=== PATIENT | male | born 1955 | race African-American/Black ===

== ENCOUNTER 2016-10-04 08:47 | Inpatient (IN) | payer OTHER ==
[2016-10-04 09:11] VITALS: BMI 34.5
--- NOTE | 2016-10-04 09:13 | HP ---
CIWA Score - CIWA Score Nausea/Vomitin-Mild Nausea/No Vomiting Muscle Tremors: 4-Moderate,w/Arms Extend Anxiety: 4-Mod. Anxious/Guarded Agitation: 1-Slight > Activity Paroxysmal Sweats: 1-Minimal Palms Moist Orientation: 0-Oriented Tacttile Disturbances: 1-Very Mild Itch/Numbness Auditory Disturbances: 1-Very Mild Visual Disturbances: 1-Very Mild Sensitivity Headache: 2-Mild CIWA-Ar Total Score: 16 Admission ROS [facility] - HPI Chief Complaint: I need help to stop drinking, I'm drinking too much, I'm falling, my landlord wants me to come and so do I. Allergies/Adverse Reactions: Allergies Allergy/AdvReac Type Severity Reaction Status Date / Time No Known Allergies Allergy Verified 10/04/16 09:09 History of Present Illness: 61 yo gentleman here for first time for detox - last in detox three years ago . Denies seizures or black outs. History HIV+. Exam Limitations: Clinical Condition - Ebola screening Have you traveled outside of the country in the last 21 days: No Have you had contact with anyone from an Ebola affected area: No Do you have a fever: No - Review of Systems Constitutional: Loss of Appetite, Changes in sleep EENT: reports: Blurred Vision, Hearing Loss Respiratory: reports: No Symptoms reported Cardiac: reports: No Symptoms Reported GI: reports: Poor Appetite, Indigestion, Abdominal cramping : reports: Frequency Integumentary: reports: Other (vitiligo) Neuro: reports: Headache, Tremors Endocrine: reports: No Symptoms Reported Hematology: reports: No Symptoms Reported Psychiatric: reports: Judgement Intact, Mood/Affect Appropiate, Orientated x3, Anxious Other Systems: Reviewed and Negative Patient History - Patient Medical History Hx Anemia: No Hx Asthma: No Hx Chronic Obstructive Pulmonary Disease (COPD): No Hx Cancer: No Hx Cardiac Disorders: No Hx Congestive Heart Failure: No Hx Hypertension: Yes (on meds) Hx Hypercholesterolemia: Yes (on meds) Hx Pacemaker: No HX Cerebrovascular Accident: No Hx Seizures: No Hx Diabetes: No Hx Gastrointestinal Disorders: No Hx Liver Disease: No Hx Genitourinary Disorders: No Hx Sexually Transmitted Disorders: Yes (rectal/anal wart) Hx Renal Disease (ESRD): No Hx Thyroid Disease: No Hx Human Immunodeficiency Virus (HIV): Yes (since 1988; T cells in 600s, vl <20) Hx Hepatitis C: Yes (treated x 3 months) Hx Depression: Yes (hx manic depression) Hx Suicide Attempt: Yes (about 10 years ago) Hx Bipolar Disorder: No Hx Schizophrenia: No Other Medical History: vitiligo; reduced hearing bilaterally - Patient Surgical History Past Surgical History: Yes Hx Genitourinary Surgery: No (anal wart removal ) - PPD History Previous Implant?: Yes Documented Results: Negative w/o proof Implanted On Prior R Admission?: No PPD to be Administered?: Yes - Reproductive History Patient is a Female of Child Bearing Age (11 -55 yrs old): No (male) - Smoking Cessation Smoking history: Current every day smoker Have you smoked in the past 12 months: Yes Aproximately how many cigarettes per day: 10 Hx Chewing Tobacco Use: No Initiated information on smoking cessation: Yes 'Breaking Loose' booklet given: 10/04/16 (give on floor) - Substance & Tx. History Hx Alcohol Use: Yes Hx Substance Use: Yes Substance Use Type: Alcohol, Cocaine Hx Substance Use Treatment: Yes (detox) - Substances Abused Alcohol Route: Oral Frequency: Daily Amount used: 1.5 liters liquor; two six packs beer Age of first use: 32 Date of Last Use: 10/03/16 Crack Route: Smoking Frequency: Daily Amount used: $100 Age of first use: 32 Date of Last Use: 10/03/16 Family Disease History - Family Disease History Family Disease History: Diabetes: Father (hx alcohol, ), Mother ( 96), Heart Disease: Mother, Other: Father, Sister ( AIDS) Admission Physical Exam S - Vital Signs Vital Signs: Vital Signs Period Temp Pulse Resp BP Sys/[place]ands Pulse Ox Last 24 Hr 98.2 F 97 20 107/71 - Physical General Appearance: Yes: Nourished, Appropriately Dressed, Mild Distress, Anxious HEENTM: Yes: Normocephalic, Normal Voice, Pharynx Normal, Other (reduced hearing ) Respiratory: Yes: Normal Breath Sounds, No Respiratory Distress Neck: Yes: No masses,lesions,Nodules, Supple Breast: Yes: Breast Exam Deferred Cardiology: Yes: Regular Rhythm, Regular Rate Abdominal: Yes: Soft Genitourinary: Yes: Frequency Back: Yes: Normal Inspection Musculoskeletal: Yes: full range of Motion, Gait Steady Extremities: Yes: Normal Range of Motion Neurological: Yes: Alert, Motor Strength 5/5, Normal Mood/Affect, Normal Response Integumentary: Yes: Dry, Other (vitiligo) Lymphatic: Yes: Within Normal Limits - Diagnostic (1) Alcohol dependence with uncomplicated withdrawal Current Visit: Yes Status: Chronic (2) Cocaine abuse Current Visit: Yes Status: Chronic (3) HIV (human immunodeficiency virus infection) Current Visit: Yes Status: Chronic (4) Hearing loss Current Visit: Yes Status: Chronic Qualifiers: Hearing loss type: unspecified Laterality: bilateral Qualified Code(s): H91.93 - Unspecified hearing loss, bilateral (5) Nicotine dependence Current Visit: Yes Status: Chronic Qualifiers: Nicotine product type: cigarettes Substance use status: uncomplicated Qualified Code(s): F17.210 - Nicotine dependence, cigarettes, uncomplicated (6) Vitiligo Current Visit: Yes Status: Chronic Cleared for Admission S - Detox or Rehab S Level of Care: Medically Managed Detox Regimen/Protocol: Librium
[2016-10-04] MEDS ORDERED: LOPERAMIDE HCL 2 MG CAPSULE PO PRN (09:49)
[2016-10-04] MEDS ORDERED: MAGNESIUM CITRATE 300 ML BOTTLE PO PRN (09:49)
[2016-10-04] MEDS ORDERED: chlordiazePOXIDE HCL 25 MG CAPSULE PO PRN (09:49)
[2016-10-04] MEDS ORDERED: MENTHOL/PHENOL 1 EACH UD MM PRN (09:49)
[2016-10-04] MEDS ORDERED: MAGNESIUM HYDROX 2400MG/30ML ORAL SUSPENSION 30 ML CUP PO PRN (09:49)
[2016-10-04] MEDS ORDERED: diphenhydrAMINE HCL 50 MG CAPSULE PO PRN (09:49)
[2016-10-04] MEDS ORDERED: MAG HYDROX/AL HYDROX/SIMETH 30 ML UNIT-DOSE CUP PO PRN (09:49)
[2016-10-04] MEDS ORDERED: P-EPHED 60MG/TRIPROLIDI 2.5MG TABLET PO PRN (09:49)
[2016-10-04] MEDS ORDERED: hydrOXYzine PAMOATE 50 MG CAPSULE (FP) PO PRN (09:49)
[2016-10-04] MEDS ORDERED: NICOTINE POLACRILEX 2 MG GUM BC PRN (09:49)
[2016-10-04] MEDS ORDERED: ACETAMINOPHEN 325 MG TABLET (FP) PO PRN (09:49)
[2016-10-04] MEDS ORDERED: chlordiazePOXIDE HCL 25 MG CAPSULE PO ONE (11:00)
[2016-10-04] MEDS: RALTEGRAVIR POTASSIUM 400 MG TAB PO SCH ×2 (13:24→22:25)
[2016-10-04] MEDS: NICOTINE 21 MG/24 HOURS TOPICAL PATCH TD SCH (13:24)
[2016-10-04] MEDS: ASPIRIN 81 MG CHEWABLE TABLETS PO SCH (13:24)
[2016-10-04] MEDS: RITONAVIR 100 MG TABLET PO SCH (13:26)
[2016-10-04] MEDS: EMTRICITABINE 200MG/TENOFOVIR 300MG PO SCH (13:26)
[2016-10-04] MEDS: PRENATAL VITAMINS W/ FOLIC ACID TABLET (FP) PO SCH (13:26)
[2016-10-04] MEDS: LISINOPRIL 10 MG TABLET (FP) PO SCH (13:26)
[2016-10-04] MEDS: chlordiazePOXIDE HCL 25 MG CAPSULE PO SCH ×2 (17:26→23:24)
[2016-10-04 18:38] LABS: URINE APPEARANCE CLEAR; URINE BILIRUBIN NEGATIVE (NEGATIVE); URINE COLOR YELLOW; URINE GLUCOSE (UA) NEGATIVE (NEGATIVE); URINE KETONE NEGATIVE (NEGATIVE); URINE LEUK ESTERASE NEGATIVE (NEGATIVE); URINE NITRITE NEGATIVE (NEGATIVE); URINE UROBILINOGEN NEGATIVE E.U./dl (0.2-1.0)
[2016-10-04 18:40] LABS: URINE BLOOD 1+ (NEGATIVE); URINE PROTEIN 1+ (NEGATIVE)
[2016-10-04 18:59] LABS: URINE MUCUS RARE; URINE RBC 4 /hpf (0-3)
[2016-10-04] MEDS: THIAMINE HCL 100 MG TABLET (FP) PO SCH (22:23)
[2016-10-04] MEDS: ATORVASTATIN CA 10 MG TABLET (FP) PO SCH (22:25)
[2016-10-04] MEDS: guaiFENesin/D-METHORPHAN HB 10 ML UNIT-DOSE CUPS PO PRN (22:27)
[2016-10-05] MEDS: chlordiazePOXIDE HCL 25 MG CAPSULE PO SCH ×4 (05:40→22:15)
--- NOTE | 2016-10-05 09:12 | PN ---
S CIWA - CIWA Score Nausea/Vomitin Muscle Tremors: 3 Anxiety: 3 Agitation: 4-Moderately Restless Paroxysmal Sweats: No Perspiration Orientation: 0-Oriented Tacttile Disturbances: 0-None Auditory Disturbances: 0-None Visual Disturbances: 0-None Headache: 3-Moderate CIWA-Ar Total Score: 16 [facility] Progress Note (SOAP) Subjective: Fatigue, Anxiety, Interrupted sleep, Tremors Objective: 10/05/16 09:17 Vital Signs Temperature 96.8 F L 10/05/16 06:24 Pulse Rate 90 10/05/16 06:24 Respiratory Rate 18 10/05/16 06:24 Blood Pressure 130/81 10/05/16 06:24 O2 Sat by Pulse Oximetry (%) Laboratory Last Values Urine Color Yellow 10/04/16 17:00 Urine Appearance Clear 10/04/16 17:00 Urine pH 5.0 (5.0-8.0) 10/04/16 17:00 Ur Specific [place] 1.024 (1.001-1.035) 10/04/16 17:00 Urine Protein 1+ (NEGATIVE) H 10/04/16 17:00 Urine Glucose (UA) Negative (NEGATIVE) 10/04/16 17:00 Urine Ketones Negative (NEGATIVE) 10/04/16 17:00 Urine Blood 1+ (NEGATIVE) H 10/04/16 17:00 Urine Nitrite Negative (NEGATIVE) 10/04/16 17:00 Urine Bilirubin Negative (NEGATIVE) 10/04/16 17:00 Urine Urobilinogen Negative E.U./dl (0.2-1.0) 10/04/16 17:00 Ur Leukocyte Esterase Negative (NEGATIVE) 10/04/16 17:00 Urine RBC 4 /hpf (0-3) 10/04/16 17:00 Urine WBC None /hpf (3-5) 10/04/16 17:00 Ur Epithelial Cells Rare /hpf (FEW) 10/04/16 17:00 Urine Mucus Rare 10/04/16 17:00 Vitals and UA noted Assessment: Withdrawal Symptoms Plan: Continue Detox
[2016-10-05 10:01] LABS: MCH 28.4 pg (25.7-33.7); MCHC 32.8 g/dl (32.0-35.9); MEAN CELL VOLUME 86.8 fl (80-96); MEAN PLT VOLUME 8.8 fl (7.5-11.1); PLATELET COUNT 158 K/MM3 (134-434); RDW 14.5 % (11.9-15.9); WHITE BLOOD COUNT 7.3 K/mm3 (4.0-10.0)
[2016-10-05] MEDS: ASPIRIN 81 MG CHEWABLE TABLETS PO SCH (10:06)
[2016-10-05] MEDS: PRENATAL VITAMINS W/ FOLIC ACID TABLET (FP) PO SCH (10:06)
[2016-10-05] MEDS: LISINOPRIL 10 MG TABLET (FP) PO SCH (10:06)
[2016-10-05] MEDS: NICOTINE 21 MG/24 HOURS TOPICAL PATCH TD SCH (10:06)
[2016-10-05] MEDS: RALTEGRAVIR POTASSIUM 400 MG TAB PO SCH ×2 (10:06→22:15)
[2016-10-05] MEDS: EMTRICITABINE 200MG/TENOFOVIR 300MG PO SCH (10:07)
[2016-10-05] MEDS: RITONAVIR 100 MG TABLET PO SCH (10:07)
[2016-10-05 10:18] LABS: ALBUMIN 3.5 g/dl (3.4-5.0); ALK PHOS 94 U/L (45-117); ANION GAP 8 (8-16); BILIRUBIN,TOTAL 0.5 mg/dL (0.2-1.0); CALCIUM 8.6 mg/dL (8.5-10.1); CO2 25 mmol/L (21-32); GLUCOSE,RANDOM 105 mg/dL (74-106); SGOT/AST 49 U/L (15-37); SGPT/ALT 72 U/L (12-78); TOT PROT 7.6 g/dl (6.4-8.2)
--- NOTE | 2016-10-05 11:38 | EKG ---
Test Reason : Blood Pressure : / mmHG Vent. Rate : 090 BPM Atrial Rate : 090 BPM P-R Int : 130 ms QRS Dur : 094 ms QT Int : 354 ms P-R-T Axes : 048 -27 025 degrees QTc Int : 433 ms NORMAL SINUS RHYTHM MINIMAL VOLTAGE CRITERIA FOR LVH, MAY BE NORMAL VARIANT NONSPECIFIC T WAVE ABNORMALITY ABNORMAL ECG NO PREVIOUS ECGS AVAILABLE Confirmed by AMAURI TURNER MD ([id number]) on 10/05/2016 11:37:44 AM Referred By: Confirmed By:AMAURI TURNER MD
[2016-10-05] MEDS: guaiFENesin/D-METHORPHAN HB 10 ML UNIT-DOSE CUPS PO PRN ×2 (12:45→22:17)
[2016-10-05 20:45] LABS: SICKLE CELL SCREEN NEGATIVE (NEGATIVE)
[2016-10-05] MEDS: THIAMINE HCL 100 MG TABLET (FP) PO SCH (22:15)
[2016-10-05] MEDS: ATORVASTATIN CA 10 MG TABLET (FP) PO SCH (22:15)
[2016-10-06] MEDS: chlordiazePOXIDE HCL 25 MG CAPSULE PO SCH ×2 (05:58→10:36)
[2016-10-06] MEDS: guaiFENesin/D-METHORPHAN HB 10 ML UNIT-DOSE CUPS PO PRN ×2 (05:59→17:23)
[2016-10-06] MEDS: RITONAVIR 100 MG TABLET PO SCH (10:07)
[2016-10-06] MEDS: EMTRICITABINE 200MG/TENOFOVIR 300MG PO SCH (10:07)
[2016-10-06] MEDS: PRENATAL VITAMINS W/ FOLIC ACID TABLET (FP) PO SCH (10:07)
[2016-10-06] MEDS: NICOTINE 21 MG/24 HOURS TOPICAL PATCH TD SCH (10:07)
[2016-10-06] MEDS: ASPIRIN 81 MG CHEWABLE TABLETS PO SCH (10:07)
[2016-10-06] MEDS: RALTEGRAVIR POTASSIUM 400 MG TAB PO SCH ×2 (10:07→22:09)
[2016-10-06] MEDS: LISINOPRIL 10 MG TABLET (FP) PO SCH (10:07)
--- NOTE | 2016-10-06 11:16 | PN ---
S CIWA - CIWA Score Nausea/Vomitin-No Nausea/No Vomiting Muscle Tremors: 3 Anxiety: 4-Mod. Anxious/Guarded Agitation: 3 Paroxysmal Sweats: 3 Orientation: 0-Oriented Tacttile Disturbances: 0-None Auditory Disturbances: 0-None Visual Disturbances: 0-None Headache: 0-None Present CIWA-Ar Total Score: 13 S Progress Note (SOAP) Subjective: Anxiety,tremors,sweating,interrupted sleep,restless Objective: 10/06/16 11:15 Vital Signs - 8 hr 10/06/16 10/06/16 10/06/16 03:27 06:17 09:29 Temperature 97.7 F 95.9 F L Pulse Rate 89 99 H Respiratory 18 18 18 Rate Blood Pressure 110/78 104/90 Laboratory Last Values WBC 7.3 K/mm3 (4.0-10.0) 10/05/16 07:16 RBC 5.27 M/mm3 (4.00-5.60) 10/05/16 07:16 Hgb 15.0 GM/dL (11.7-16.9) 10/05/16 07:16 Hct 45.7 % (35.4-49) 10/05/16 07:16 MCV 86.8 fl (80-96) 10/05/16 07:16 MCHC 32.8 g/dl (32.0-35.9) 10/05/16 07:16 RDW 14.5 % (11.9-15.9) 10/05/16 07:16 Plt Count 158 K/MM3 (134-434) 10/05/16 07:16 MPV 8.8 fl (7.5-11.1) 10/05/16 07:16 Sickle Cell Screen Negative (NEGATIVE) 10/05/16 07:16 Sodium 138 mmol/L (136-145) 10/05/16 07:16 Potassium 3.7 mmol/L (3.5-5.1) 10/05/16 07:16 Chloride 105 mmol/L (98-107) 10/05/16 07:16 Carbon Dioxide 25 mmol/L (21-32) 10/05/16 07:16 Anion Gap 8 (8-16) 10/05/16 07:16 BUN 16 mg/dL (7-18) 10/05/16 07:16 Creatinine 1.0 mg/dL (0.7-1.3) 10/05/16 07:16 Creat Clearance w eGFR > 60 (>60) 10/05/16 07:16 Random Glucose 105 mg/dL (74-106) 10/05/16 07:16 Calcium 8.6 mg/dL (8.5-10.1) 10/05/16 07:16 Total Bilirubin 0.5 mg/dL (0.2-1.0) 10/05/16 07:16 AST 49 U/L (15-37) H 10/05/16 07:16 ALT 72 U/L (12-78) 10/05/16 07:16 Alkaline Phosphatase 94 U/L (45-117) 10/05/16 07:16 Total Protein 7.6 g/dl (6.4-8.2) 10/05/16 07:16 Albumin 3.5 g/dl (3.4-5.0) 10/05/16 07:16 Urine Color Yellow 10/04/16 17:00 Urine Appearance Clear 10/04/16 17:00 Urine pH 5.0 (5.0-8.0) 10/04/16 17:00 Ur Specific [place] 1.024 (1.001-1.035) 10/04/16 17:00 Urine Protein 1+ (NEGATIVE) H 10/04/16 17:00 Urine Glucose (UA) Negative (NEGATIVE) 10/04/16 17:00 Urine Ketones Negative (NEGATIVE) 10/04/16 17:00 Urine Blood 1+ (NEGATIVE) H 10/04/16 17:00 Urine Nitrite Negative (NEGATIVE) 10/04/16 17:00 Urine Bilirubin Negative (NEGATIVE) 10/04/16 17:00 Urine Urobilinogen Negative E.U./dl (0.2-1.0) 10/04/16 17:00 Ur Leukocyte Esterase Negative (NEGATIVE) 10/04/16 17:00 Urine RBC 4 /hpf (0-3) 10/04/16 17:00 Urine WBC None /hpf (3-5) 10/04/16 17:00 Ur Epithelial Cells Rare /hpf (FEW) 10/04/16 17:00 Urine Mucus Rare 10/04/16 17:00 RPR Titer Nonreactive (NONREACTIVE) 10/05/16 07:16 labs noted Assessment: 10/06/16 11:15 Withdrawal sx. Plan: Continue detox
--- NOTE | 2016-10-06 12:56 | CONSULT ---
[facility] Psychiatric Consult - Data Date of interview: 10/06/16 Admission source: [facility] Identifying data: First admission to [facility] for this 61 y/o AA male seeking detox treatment for alcohol and cocaine (crack) dependence.Patient is single without children,domiciled,unemployed and supported on SSI benefits. Substance Abuse History: - Smoking Cessation. Smoking history: Current every day smoker. Have you smoked in the past 12 months: Yes. Aproximately how many cigarettes per day: 10. Hx Chewing Tobacco Use: No. Initiated information on smoking cessation: Yes. 'Breaking Loose' booklet given: 10/04/16 (give on floor ). - Substance & Tx. History. Hx Alcohol Use: Yes. Hx Substance Use: Yes. Substance Use Type: Alcohol, Cocaine. Hx Substance Use Treatment: Yes (detox). - Substances Abused. Alcohol. Route: Oral. Frequency: Daily. Amount used: 1.5 liters liquor; two six packs beer. Age of first use: 32. Date of Last Use: 10/03/16. Crack. Route: Smoking. Frequency: Daily. Amount used : $100. Age of first use: 32. Date of Last Use: 10/03/16. Confirmed by patient. Medical History: HIV infection since 1988 (on ART agents),vitiligo,decreased hearing (bilateral),hepatitis C,hypercholesterolemia,hypertension,lower back pain and a history of anal surgery (excision of warts). Psychiatric History: Patient admits to a distant history of psychiatric hospitalization (years ago) in [place], [place].Diagnosed with " manic-depression " and prescribed paxil + seroquel." I don't want to take seroquel and paxil while I am here.They make me too sleepy.I'll take them at home after my detox." Mr Cooper consents only to zolpidem and medications necessary for detoxification.Patient gets his psychiatric OPD services at [facility] in the [place].He admits to a remote history of suicide attempts via self-mutilation ( wrist-cutting). Physical/Sexual Abuse/Trauma History: Patient denies. Mental Status Exam - Mental Status Exam Alert and Oriented to: Time, Place, Person Cognitive Function: Good Patient Appearance: Well Groomed (severe case of vitiligo) Mood: Hopeful, Euthymic Affect: Appropriate, Normal Range Patient Behavior: Fatigued, Appropriate, Cooperative Speech Pattern: Clear, Appropriate Voice Loudness: Normal Thought Process: Goal Oriented Thought Disorder: Not Present Hallucinations: Denies Suicidal Ideation: Denies Homicidal Ideation: Denies Insight/Judgement: Fair Sleep: Poorly, Difficulty falling asleep Appetite: Good Muscle strength/Tone: Normal Gait/Station: Other (slow gait;patient is requesting a cane for ambulation) Psychiatric Findings - Problem List ([place] 1, 2,3) (1) Alcohol dependence with uncomplicated withdrawal Current Visit: Yes Status: Acute (2) Cocaine abuse Current Visit: Yes Status: Acute (3) Nicotine dependence Current Visit: Yes Status: Acute Qualifiers: Nicotine product type: cigarettes Substance use status: uncomplicated Qualified Code(s): F17.210 - Nicotine dependence, cigarettes, uncomplicated (4) Substance induced mood disorder Current Visit: Yes Status: Acute (5) Schizoaffective disorder Current Visit: Yes Status: Chronic Comment: Self-report. (6) HIV (human immunodeficiency virus infection) Current Visit: Yes Status: Chronic (7) Hearing loss Current Visit: Yes Status: Chronic Qualifiers: Hearing loss type: unspecified Laterality: bilateral Qualified Code(s): H91.93 - Unspecified hearing loss, bilateral (8) Vitiligo Current Visit: Yes Status: Chronic - Initial Treatment Plan Initial Treatment Plan: Psychoeducation.Detoxification in progress.Zolpidem 10 mg po hs prn.Patient is advised against his decision to stop seroquel/paxil ( even on a temporary basis).He is made aware of the risk of parasomnias (ambien) .Pharmacy claims are reviewed.Noted scripts for paxil 40 mg/day + seroquel 200 mg/hs on 08/29/16 @ [facility]/ambien 10 mg/hs # 30 @ [facility] on 09/23/16.No need fo scripts at discharge.
[2016-10-06] MEDS: chlordiazePOXIDE 5 MG CAPSULE PO SCH ×2 (17:21→22:09)
[2016-10-06] MEDS: THIAMINE HCL 100 MG TABLET (FP) PO SCH (22:09)
[2016-10-06] MEDS: ATORVASTATIN CA 10 MG TABLET (FP) PO SCH (22:09)
[2016-10-06] MEDS: ZOLPIDEM TARTRATE 10 MG TABLET (PARK CARE ONLY) PO PRN (22:09)
[2016-10-07] MEDS: chlordiazePOXIDE 5 MG CAPSULE PO SCH ×2 (05:42→10:12)
[2016-10-07] MEDS: guaiFENesin/D-METHORPHAN HB 10 ML UNIT-DOSE CUPS PO PRN ×2 (05:42→17:42)
--- NOTE | 2016-10-07 10:04 | PN ---
[facility] Progress Note (SOAP) Subjective: Sweating,interrupted sleep,restless Objective: 10/07/16 10:02 Vital Signs - 8 hr 10/07/16 10/07/16 10/07/16 03:25 06:17 09:54 Temperature 96.9 F L 97 F L Pulse Rate 91 H 90 Respiratory 18 18 20 Rate Blood Pressure 117/80 112/79 Laboratory Tests 10/04/16 10/05/16 10/05/16 17:00 07:16 07:16 WBC 7.3 RBC 5.27 Hgb 15.0 Hct 45.7 MCV 86.8 MCHC 32.8 RDW 14.5 Plt Count 158 MPV 8.8 Sickle Cell Screen Negative Sodium 138 Potassium 3.7 Chloride 105 Carbon Dioxide 25 Anion Gap 8 BUN 16 Creatinine 1.0 Creat Clearance w eGFR > 60 Random Glucose 105 Calcium 8.6 Total Bilirubin 0.5 AST 49 H ALT 72 Alkaline Phosphatase 94 Total Protein 7.6 Albumin 3.5 Urine Color Yellow Urine Appearance Clear Urine pH 5.0 Ur Specific [place] 1.024 Urine Protein 1+ H Urine Glucose (UA) Negative Urine Ketones Negative Urine Blood 1+ H Urine Nitrite Negative Urine Bilirubin Negative Urine Urobilinogen Negative Ur Leukocyte Esterase Negative Urine RBC 4 Urine WBC None Ur Epithelial Cells Rare Urine Mucus Rare RPR Titer 10/05/16 07:16 WBC RBC Hgb Hct MCV MCHC RDW Plt Count MPV Sickle Cell Screen Sodium Potassium Chloride Carbon Dioxide Anion Gap BUN Creatinine Creat Clearance w eGFR Random Glucose Calcium Total Bilirubin AST ALT Alkaline Phosphatase Total Protein Albumin Urine Color Urine Appearance Urine pH Ur Specific [place] Urine Protein Urine Glucose (UA) Urine Ketones Urine Blood Urine Nitrite Urine Bilirubin Urine Urobilinogen Ur Leukocyte Esterase Urine RBC Urine WBC Ur Epithelial Cells Urine Mucus RPR Titer Nonreactive labs noted Assessment: 10/07/16 10:03 Withdrawal sx. Plan: Continue detox
[2016-10-07] MEDS: ASPIRIN 81 MG CHEWABLE TABLETS PO SCH (10:09)
[2016-10-07] MEDS: LISINOPRIL 10 MG TABLET (FP) PO SCH (10:09)
[2016-10-07] MEDS: PRENATAL VITAMINS W/ FOLIC ACID TABLET (FP) PO SCH (10:09)
[2016-10-07] MEDS: RITONAVIR 100 MG TABLET PO SCH (10:11)
[2016-10-07] MEDS: NICOTINE 21 MG/24 HOURS TOPICAL PATCH TD SCH (10:11)
[2016-10-07] MEDS: EMTRICITABINE 200MG/TENOFOVIR 300MG PO SCH (10:13)
[2016-10-07] MEDS: RALTEGRAVIR POTASSIUM 400 MG TAB PO SCH ×2 (11:30→22:06)
[2016-10-07] MEDS: chlordiazePOXIDE HCL 10 MG CAPSULE PO SCH ×2 (17:40→22:07)
[2016-10-07] MEDS: THIAMINE HCL 100 MG TABLET (FP) PO SCH (22:06)
[2016-10-07] MEDS: ATORVASTATIN CA 10 MG TABLET (FP) PO SCH (22:06)
[2016-10-07] MEDS: ZOLPIDEM TARTRATE 10 MG TABLET (PARK CARE ONLY) PO PRN (22:07)
[2016-10-08] MEDS: chlordiazePOXIDE HCL 10 MG CAPSULE PO SCH ×2 (05:57→11:58)
[2016-10-08 06:34] VITALS: PULSE 99
--- NOTE | 2016-10-08 08:47 | PN ---
S Progress Note (SOAP) Subjective: ALERT,NO COMPLAINT Objective: 10/08/16 08:46 Vital Signs Temperature 96.7 F L 10/08/16 06:34 Pulse Rate 99 H 10/08/16 06:34 Respiratory Rate 16 10/08/16 06:34 Blood Pressure 113/75 10/08/16 06:34 O2 Sat by Pulse Oximetry (%) Assessment: 10/08/16 08:46 DETOX COMPLETED,NO WITHDRAWAL SYMPTOM Plan: DISCHARGE TODAY,FOLLOW UP WITH AFTER CARE PROGRAM ARRANGEMENT
--- NOTE | 2016-10-08 08:48 | DS ---
[facility] Detox Discharge Summary Admission Date: 10/04/16 Discharge Date: 10/08/16 - History Present History: Alcohol Dependence, Cocaine Dependence Additional Comments: FOLLOW UP WITH AFTER [facility] PROGRAM ARRANGEMENT AND PMD FOR MEDICAL PROBLEM Pertinent Past History: HEARING LOSS NICOTINE DEPENDENCE VITILIGO HYPERTENSION HYPECHOLESTEROLEMIA HIV - Physical Exam Results Vital Signs: Vital Signs Temperature 96.7 F L 10/08/16 06:34 Pulse Rate 99 H 10/08/16 06:34 Respiratory Rate 16 10/08/16 06:34 Blood Pressure 113/75 10/08/16 06:34 O2 Sat by Pulse Oximetry (%) - Treatment Hospital Course: Detox Protocol Followed, Detoxed Safely, Responded well, Discharged Condition Good, Rehab Referral Accepted Patient has Accepted a Rehab Referral to: [facility] - Medication Discharge Medications: Ambulatory Orders Alprazolam [Xanax] 1 mg PO TID PRN 10/04/16 Aspirin [ASA -] 81 mg PO DAILY 10/04/16 Elviteg/Sheila/Emtric/Tenofo Ala [Genvoya Tablet] 1 each PO HS 10/04/16 Lisinopril 10 mg PO DAILY 10/04/16 Pravastatin Sodium 10 mg PO HS 10/04/16 Zolpidem Tartrate [Ambien] 10 mg PO HS 10/04/16 - AMA Did Patient Leave Against Medical Advice: No
[2016-10-08 10:09] VITALS: BP 106/81; TEMP 97.6
[2016-10-08] MEDS: RITONAVIR 100 MG TABLET PO SCH (10:16)
[2016-10-08] MEDS: PRENATAL VITAMINS W/ FOLIC ACID TABLET (FP) PO SCH (10:16)
[2016-10-08] MEDS: ASPIRIN 81 MG CHEWABLE TABLETS PO SCH (10:16)
[2016-10-08] MEDS: RALTEGRAVIR POTASSIUM 400 MG TAB PO SCH (10:16)
[2016-10-08] MEDS: EMTRICITABINE 200MG/TENOFOVIR 300MG PO SCH (10:16)
[2016-10-08] MEDS: LISINOPRIL 10 MG TABLET (FP) PO SCH (10:16)
[2016-10-08] MEDS: NICOTINE 21 MG/24 HOURS TOPICAL PATCH TD SCH (10:17)
== END 2016-10-08 12:02 | disposition other institution (70) | DRG 774 ==
LOC: YASAS 08:47 → Y3N 10:27
PROVIDERS: ADMIT Internal Medicine Addiction Medicine; ATTEND Internal Medicine Addiction Medicine
PROC: HZ2ZZZZ Detoxification Services for Substance Abuse Treatment (ICD-10-PCS; principal; 2016-10-04)
DX: F10.230 Alcohol dependence with withdrawal, uncomplicated (principal); F14.10 Cocaine abuse, uncomplicated; F17.210 Nicotine dependence, cigarettes, uncomplicated; F19.24 Other psychoactive substance dependence with psychoactive substance-induced mood disorder; F25.9 Schizoaffective disorder, unspecified; L80 Vitiligo; I10 Essential (primary) hypertension; E78.00 Pure hypercholesterolemia, unspecified; Z21 Asymptomatic human immunodeficiency virus [HIV] infection status; H91.93 Unspecified hearing loss, bilateral; Z87.438 Personal history of other diseases of male genital organs; Z91.5 Personal history of self-harm
CPT/HCPCS: 36415; 80053; 81003; 81015; 85027; 85660; 86593; 93005; 93010

== ENCOUNTER 2016-10-08 12:16 | Inpatient (IN) | payer OTHER ==
[2016-10-08] MEDS ORDERED: MAGNESIUM CITRATE 300 ML BOTTLE PO PRN (14:54)
[2016-10-08] MEDS ORDERED: LOPERAMIDE HCL 2 MG CAPSULE PO PRN (14:54)
[2016-10-08] MEDS ORDERED: NICOTINE POLACRILEX 4 MG GUM BUC PRN (14:54)
[2016-10-08] MEDS ORDERED: MENTHOL/PHENOL 1 EACH UD MM PRN (14:54)
[2016-10-08] MEDS ORDERED: P-EPHED 60MG/TRIPROLIDI 2.5MG TABLET PO PRN (14:54)
[2016-10-08] MEDS ORDERED: diphenhydrAMINE HCL 50 MG CAPSULE PO PRN (14:54)
[2016-10-08] MEDS ORDERED: MAGNESIUM HYDROX 2400MG/30ML ORAL SUSPENSION 30 ML CUP PO PRN (14:54)
--- NOTE | 2016-10-08 16:23 | HP ---
[facility] Rehab Assess/Revision - Admission History Admitted to Rehab from: [facility] Date of Admission to Rehab: 10/08/16 - Findings Detox History & Physical reviewed: Yes Concur with findings: Yes Comments/Additional Findings: transferred from detox to rehab admission as per protocol
[2016-10-08] MEDS: IBUPROFEN 400 MG TABLET (FP) PO PRN (20:11)
[2016-10-08] MEDS: NON-FORMULARY MED PO SCH (21:31)
[2016-10-08] MEDS: THIAMINE HCL 100 MG TABLET (FP) PO SCH (21:31)
[2016-10-08] MEDS ORDERED: ATORVASTATIN CA 10 MG TABLET (FP) PO SCH (22:00)
[2016-10-08] MEDS: RALTEGRAVIR POTASSIUM 400 MG TAB PO SCH (22:18)
[2016-10-08] MEDS: guaiFENesin/D-METHORPHAN HB 10 ML UNIT-DOSE CUPS PO PRN (22:18)
[2016-10-09] MEDS: ASPIRIN 81 MG CHEWABLE TABLETS PO SCH (10:11)
[2016-10-09] MEDS: NICOTINE 21 MG/24 HOURS TOPICAL PATCH TD SCH (10:11)
[2016-10-09] MEDS: LISINOPRIL 10 MG TABLET (FP) PO SCH (10:11)
[2016-10-09] MEDS: RALTEGRAVIR POTASSIUM 400 MG TAB PO SCH ×2 (10:11→21:22)
[2016-10-09] MEDS: PRENATAL VITAMINS W/ FOLIC ACID TABLET (FP) PO SCH (10:12)
[2016-10-09] MEDS: IBUPROFEN 400 MG TABLET (FP) PO PRN ×2 (10:15→20:41)
[2016-10-09] MEDS: RITONAVIR 100 MG TABLET PO SCH (11:21)
[2016-10-09] MEDS: EMTRICITABINE 200MG/TENOFOVIR 300MG PO SCH (11:22)
--- NOTE | 2016-10-09 13:50 | PN ---
[facility] Progress Note Note: 61 y/o m pt with h/o hiv+ anal warts c./o cough phlegm greenish . pt h/o smoking also on lisinopril Vital Signs Temp 97.4 F L 10/09/16 06:55 Pulse 82 10/09/16 06:55 Resp 18 10/09/16 06:55 BP 115/69 10/09/16 06:55 Pulse Ox Intake & Output 10/08/16 10/09/16 10/09/16 23:59 11:59 23:59 Weight 230 lb Other: Voiding Method Toilet Toilet pt aox3 in nad occas cough skin vitiligo lungs clear to a/p imp cough phlegm hiv r/o pn plan cxr z brandyn fluids conisder changing lisinopril
[2016-10-09] MEDS ORDERED: AZITHROMYCIN 250 MG TABLET (FP) PO ONE (13:59)
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
[2016-10-09] MEDS: DOCUSATE SODIUM 100 MG CAPSULE (FP) PO SCH ×2 (14:17→21:22)
[2016-10-09] MEDS: ACETAMINOPHEN 325 MG TABLET (FP) PO PRN ×2 (14:18→21:23)
[2016-10-09] MEDS: guaiFENesin/D-METHORPHAN HB 10 ML UNIT-DOSE CUPS PO PRN ×2 (14:18→21:24)
[2016-10-09] MEDS: NON-FORMULARY MED PO SCH (21:22)
[2016-10-09] MEDS: QUEtiapine FUMARATE 50 MG TABLET PO SCH (21:22)
[2016-10-09] MEDS: THIAMINE HCL 100 MG TABLET (FP) PO SCH (21:22)
[2016-10-10] MEDS: DOCUSATE SODIUM 100 MG CAPSULE (FP) PO SCH ×3 (07:05→21:13)
[2016-10-10] MEDS: IBUPROFEN 400 MG TABLET (FP) PO PRN ×2 (07:05→14:37)
[2016-10-10] MEDS ORDERED: PARoxetine HCL 30 MG TABLET PO SCH (10:00)
[2016-10-10] MEDS: PRENATAL VITAMINS W/ FOLIC ACID TABLET (FP) PO SCH (10:13)
[2016-10-10] MEDS: RALTEGRAVIR POTASSIUM 400 MG TAB PO SCH ×2 (10:13→21:13)
[2016-10-10] MEDS: LISINOPRIL 10 MG TABLET (FP) PO SCH (10:13)
[2016-10-10] MEDS: AZITHROMYCIN 250 MG TABLET (FP) PO SCH (10:13)
[2016-10-10] MEDS: ASPIRIN 81 MG CHEWABLE TABLETS PO SCH (10:13)
[2016-10-10] MEDS: RITONAVIR 100 MG TABLET PO SCH (10:13)
[2016-10-10] MEDS: NICOTINE 21 MG/24 HOURS TOPICAL PATCH TD SCH (10:14)
[2016-10-10] MEDS: EMTRICITABINE 200MG/TENOFOVIR 300MG PO SCH (10:14)
[2016-10-10] MEDS: PAROXETINE HCL PO SCH (10:15)
--- NOTE | 2016-10-10 14:59 | PN ---
[facility] Progress Note Note: Rt. earache for the past 2 days. Pt. wears hearing AID. Vital Signs - 8 hr 10/10/16 07:13 Temperature 97.8 F Pulse Rate 87 Respiratory 20 Rate Blood Pressure 111/74 Ears : Both external canals with soft wax,pt. c/o tenderness rt. ext. canal Dx. : R/O Otitis externa P : Cortisporin otic johnnie AD
[2016-10-10] MEDS: NEOMYCIN/POLYMYXN/HC OTIC SUSPENSION 10 ML BOTTLE AD SCH ×2 (17:36→21:13)
[2016-10-10] MEDS: THIAMINE HCL 100 MG TABLET (FP) PO SCH (21:13)
[2016-10-10] MEDS: NON-FORMULARY MED PO SCH (21:13)
[2016-10-10] MEDS: QUEtiapine FUMARATE 50 MG TABLET PO SCH (21:13)
[2016-10-10] MEDS: guaiFENesin/D-METHORPHAN HB 10 ML UNIT-DOSE CUPS PO PRN (21:14)
[2016-10-10] MEDS: IBUPROFEN 600 MG TABLET (FP) PO PRN (23:53)
[2016-10-11] MEDS: DOCUSATE SODIUM 100 MG CAPSULE (FP) PO SCH ×3 (06:51→21:16)
[2016-10-11] MEDS: LISINOPRIL 10 MG TABLET (FP) PO SCH (10:15)
[2016-10-11] MEDS: AZITHROMYCIN 250 MG TABLET (FP) PO SCH (10:15)
[2016-10-11] MEDS: PRENATAL VITAMINS W/ FOLIC ACID TABLET (FP) PO SCH (10:15)
[2016-10-11] MEDS: RALTEGRAVIR POTASSIUM 400 MG TAB PO SCH ×2 (10:15→21:16)
[2016-10-11] MEDS: ASPIRIN 81 MG CHEWABLE TABLETS PO SCH (10:15)
[2016-10-11] MEDS: PAROXETINE HCL PO SCH (10:16)
[2016-10-11] MEDS: EMTRICITABINE 200MG/TENOFOVIR 300MG PO SCH (10:16)
[2016-10-11] MEDS: RITONAVIR 100 MG TABLET PO SCH (10:16)
[2016-10-11] MEDS: NICOTINE 21 MG/24 HOURS TOPICAL PATCH TD SCH (10:17)
[2016-10-11] MEDS: NEOMYCIN/POLYMYXN/HC OTIC SUSPENSION 10 ML BOTTLE AD SCH ×5 (10:17→21:23)
[2016-10-11] MEDS: IBUPROFEN 600 MG TABLET (FP) PO PRN ×2 (10:18→21:18)
[2016-10-11] MEDS: NON-FORMULARY MED PO SCH (21:16)
[2016-10-11] MEDS: QUEtiapine FUMARATE 50 MG TABLET PO SCH (21:16)
[2016-10-11] MEDS: THIAMINE HCL 100 MG TABLET (FP) PO SCH (21:16)
[2016-10-11] MEDS: guaiFENesin/D-METHORPHAN HB 10 ML UNIT-DOSE CUPS PO PRN (21:19)
[2016-10-12] MEDS: DOCUSATE SODIUM 100 MG CAPSULE (FP) PO SCH ×3 (06:35→21:44)
[2016-10-12] MEDS: AZITHROMYCIN 250 MG TABLET (FP) PO SCH (10:23)
[2016-10-12] MEDS: PRENATAL VITAMINS W/ FOLIC ACID TABLET (FP) PO SCH (10:23)
[2016-10-12] MEDS: RALTEGRAVIR POTASSIUM 400 MG TAB PO SCH ×2 (10:23→22:22)
[2016-10-12] MEDS: NICOTINE 21 MG/24 HOURS TOPICAL PATCH TD SCH (10:23)
[2016-10-12] MEDS: ASPIRIN 81 MG CHEWABLE TABLETS PO SCH (10:23)
[2016-10-12] MEDS: LISINOPRIL 10 MG TABLET (FP) PO SCH (10:23)
[2016-10-12] MEDS: EMTRICITABINE 200MG/TENOFOVIR 300MG PO SCH (10:24)
[2016-10-12] MEDS: NEOMYCIN/POLYMYXN/HC OTIC SUSPENSION 10 ML BOTTLE AD SCH ×4 (10:24→21:44)
[2016-10-12] MEDS: RITONAVIR 100 MG TABLET PO SCH (10:24)
[2016-10-12] MEDS: PAROXETINE HCL PO SCH (10:25)
[2016-10-12] MEDS: IBUPROFEN 600 MG TABLET (FP) PO PRN ×2 (10:27→21:48)
[2016-10-12] MEDS: QUEtiapine FUMARATE 50 MG TABLET PO SCH (21:44)
[2016-10-12] MEDS: THIAMINE HCL 100 MG TABLET (FP) PO SCH (21:44)
[2016-10-12] MEDS: NON-FORMULARY MED PO SCH (21:45)
[2016-10-12] MEDS: guaiFENesin/D-METHORPHAN HB 10 ML UNIT-DOSE CUPS PO PRN (21:48)
[2016-10-13] MEDS: DOCUSATE SODIUM 100 MG CAPSULE (FP) PO SCH ×3 (06:27→21:37)
[2016-10-13] MEDS: LISINOPRIL 10 MG TABLET (FP) PO SCH (10:22)
[2016-10-13] MEDS: AZITHROMYCIN 250 MG TABLET (FP) PO SCH (10:22)
[2016-10-13] MEDS: PRENATAL VITAMINS W/ FOLIC ACID TABLET (FP) PO SCH (10:22)
[2016-10-13] MEDS: ASPIRIN 81 MG CHEWABLE TABLETS PO SCH (10:22)
[2016-10-13] MEDS: PAROXETINE HCL PO SCH (10:24)
[2016-10-13] MEDS: NICOTINE 21 MG/24 HOURS TOPICAL PATCH TD SCH (10:25)
[2016-10-13] MEDS: NEOMYCIN/POLYMYXN/HC OTIC SUSPENSION 10 ML BOTTLE AD SCH ×4 (10:26→21:39)
[2016-10-13] MEDS: IBUPROFEN 600 MG TABLET (FP) PO PRN ×2 (10:30→21:40)
[2016-10-13] MEDS: RITONAVIR 100 MG TABLET PO SCH (10:31)
[2016-10-13] MEDS: EMTRICITABINE 200MG/TENOFOVIR 300MG PO SCH (10:32)
[2016-10-13] MEDS: RALTEGRAVIR POTASSIUM 400 MG TAB PO SCH ×2 (11:57→21:40)
[2016-10-13] MEDS: guaiFENesin/D-METHORPHAN HB 10 ML UNIT-DOSE CUPS PO PRN (21:40)
[2016-10-13] MEDS: QUEtiapine FUMARATE 50 MG TABLET PO SCH (21:40)
[2016-10-13] MEDS: NON-FORMULARY MED PO SCH (21:40)
[2016-10-13] MEDS: THIAMINE HCL 100 MG TABLET (FP) PO SCH (21:40)
[2016-10-14] MEDS: DOCUSATE SODIUM 100 MG CAPSULE (FP) PO SCH ×3 (06:34→21:15)
[2016-10-14] MEDS: ASPIRIN 81 MG CHEWABLE TABLETS PO SCH (09:55)
[2016-10-14] MEDS: PRENATAL VITAMINS W/ FOLIC ACID TABLET (FP) PO SCH (09:56)
[2016-10-14] MEDS: LISINOPRIL 10 MG TABLET (FP) PO SCH (09:56)
[2016-10-14] MEDS: NEOMYCIN/POLYMYXN/HC OTIC SUSPENSION 10 ML BOTTLE AD SCH ×4 (09:56→21:15)
[2016-10-14] MEDS: RALTEGRAVIR POTASSIUM 400 MG TAB PO SCH ×2 (09:56→21:15)
[2016-10-14] MEDS: PAROXETINE HCL PO SCH (09:56)
[2016-10-14] MEDS: EMTRICITABINE 200MG/TENOFOVIR 300MG PO SCH (09:57)
[2016-10-14] MEDS: RITONAVIR 100 MG TABLET PO SCH (09:57)
[2016-10-14] MEDS: NICOTINE 21 MG/24 HOURS TOPICAL PATCH TD SCH (09:57)
[2016-10-14] MEDS: IBUPROFEN 600 MG TABLET (FP) PO PRN ×2 (10:00→21:17)
[2016-10-14] MEDS: THIAMINE HCL 100 MG TABLET (FP) PO SCH (21:15)
[2016-10-14] MEDS: QUEtiapine FUMARATE 50 MG TABLET PO SCH (21:15)
[2016-10-14] MEDS: NON-FORMULARY MED PO SCH (21:16)
[2016-10-14] MEDS: guaiFENesin/D-METHORPHAN HB 10 ML UNIT-DOSE CUPS PO PRN (21:17)
[2016-10-15] MEDS: DOCUSATE SODIUM 100 MG CAPSULE (FP) PO SCH ×3 (06:50→21:14)
[2016-10-15] MEDS ORDERED: PARoxetine HCL 20 MG TABLET (FP) ONE (08:29)
[2016-10-15] MEDS ORDERED: PARoxetine HCL 10 MG TABLET (FP) ONE (08:29)
[2016-10-15] MEDS: PAROXETINE HCL PO SCH (10:25)
[2016-10-15] MEDS: LISINOPRIL 10 MG TABLET (FP) PO SCH (10:26)
[2016-10-15] MEDS: ASPIRIN 81 MG CHEWABLE TABLETS PO SCH (10:27)
[2016-10-15] MEDS: EMTRICITABINE 200MG/TENOFOVIR 300MG PO SCH (10:27)
[2016-10-15] MEDS: RITONAVIR 100 MG TABLET PO SCH (10:27)
[2016-10-15] MEDS: NEOMYCIN/POLYMYXN/HC OTIC SUSPENSION 10 ML BOTTLE AD SCH ×2 (10:29→14:26)
[2016-10-15] MEDS: NICOTINE 21 MG/24 HOURS TOPICAL PATCH TD SCH (10:30)
[2016-10-15] MEDS: RALTEGRAVIR POTASSIUM 400 MG TAB PO SCH ×2 (10:30→21:14)
[2016-10-15] MEDS: IBUPROFEN 600 MG TABLET (FP) PO PRN ×2 (10:30→21:16)
[2016-10-15] MEDS: PRENATAL VITAMINS W/ FOLIC ACID TABLET (FP) PO SCH (10:32)
[2016-10-15] MEDS: QUEtiapine FUMARATE 50 MG TABLET PO SCH (21:14)
[2016-10-15] MEDS: THIAMINE HCL 100 MG TABLET (FP) PO SCH (21:14)
[2016-10-15] MEDS: NON-FORMULARY MED PO SCH (21:15)
[2016-10-15] MEDS: guaiFENesin/D-METHORPHAN HB 10 ML UNIT-DOSE CUPS PO PRN (21:17)
--- NOTE | 2016-10-15 23:31 | PN ---
S Progress Note Note: ASKED TO SEE PT FOR REPORTED FALL. CLIENT REPORTS FEELING "LIGHT HEADED" WHILE STANDING AND FELL ON HIS BUTTOCKS. DENIES ANY HEAD TRAUMA, LOC, PAIN, C.P, SOB, Vital Signs Temperature 98.0 F 10/15/16 22:32 Pulse Rate 95 H 10/15/16 22:32 Respiratory Rate 16 10/15/16 22:32 Blood Pressure 99/60 10/15/16 22:32 O2 Sat by Pulse Oximetry (%) OOB AMBULATING W/ CANE NAD A/O X3 SKIN INTACT NO INJURIES EXTREMITIES FROM W/O LIMITATIONS X 4 AMBULATES WITH CANE. NO VISIBLE INJURIES S/P FALL FALL PROTOCOL #2 TYLENOL, MOTRIN FOR DELAYED PAIN MONITOR FOR ORTHOSTATIC HYPOTENSION
[2016-10-16] MEDS: DOCUSATE SODIUM 100 MG CAPSULE (FP) PO SCH ×3 (06:24→21:08)
[2016-10-16] MEDS ORDERED: PARoxetine HCL 20 MG TABLET (FP) ONE (08:23)
[2016-10-16] MEDS ORDERED: PARoxetine HCL 10 MG TABLET (FP) ONE (08:23)
[2016-10-16] MEDS: PRENATAL VITAMINS W/ FOLIC ACID TABLET (FP) PO SCH (10:15)
[2016-10-16] MEDS: PAROXETINE HCL PO SCH (10:16)
[2016-10-16] MEDS: RALTEGRAVIR POTASSIUM 400 MG TAB PO SCH ×2 (10:17→21:08)
[2016-10-16] MEDS: IBUPROFEN 600 MG TABLET (FP) PO PRN (10:17)
[2016-10-16] MEDS: LISINOPRIL 10 MG TABLET (FP) PO SCH (10:18)
[2016-10-16] MEDS: RITONAVIR 100 MG TABLET PO SCH (10:18)
[2016-10-16] MEDS: NICOTINE 21 MG/24 HOURS TOPICAL PATCH TD SCH (10:19)
[2016-10-16] MEDS: EMTRICITABINE 200MG/TENOFOVIR 300MG PO SCH (10:20)
[2016-10-16] MEDS: ASPIRIN 81 MG CHEWABLE TABLETS PO SCH (11:00)
[2016-10-16] MEDS: THIAMINE HCL 100 MG TABLET (FP) PO SCH (21:08)
[2016-10-16] MEDS: QUEtiapine FUMARATE 50 MG TABLET PO SCH (21:08)
[2016-10-16] MEDS: NON-FORMULARY MED PO SCH (21:09)
[2016-10-17] MEDS: DOCUSATE SODIUM 100 MG CAPSULE (FP) PO SCH ×3 (06:35→21:31)
[2016-10-17] MEDS ORDERED: PARoxetine HCL 10 MG TABLET (FP) ONE (08:46)
[2016-10-17] MEDS ORDERED: PARoxetine HCL 20 MG TABLET (FP) ONE (08:46)
[2016-10-17] MEDS: ASPIRIN 81 MG CHEWABLE TABLETS PO SCH (10:24)
[2016-10-17] MEDS: RALTEGRAVIR POTASSIUM 400 MG TAB PO SCH ×2 (10:24→21:31)
[2016-10-17] MEDS: PAROXETINE HCL PO SCH (10:24)
[2016-10-17] MEDS: PRENATAL VITAMINS W/ FOLIC ACID TABLET (FP) PO SCH (10:24)
[2016-10-17] MEDS: LISINOPRIL 10 MG TABLET (FP) PO SCH (10:25)
[2016-10-17] MEDS: RITONAVIR 100 MG TABLET PO SCH (10:25)
[2016-10-17] MEDS: EMTRICITABINE 200MG/TENOFOVIR 300MG PO SCH (10:25)
[2016-10-17] MEDS: NICOTINE 21 MG/24 HOURS TOPICAL PATCH TD SCH (10:26)
[2016-10-17] MEDS: QUEtiapine FUMARATE 50 MG TABLET PO SCH (21:31)
[2016-10-17] MEDS: THIAMINE HCL 100 MG TABLET (FP) PO SCH (21:31)
[2016-10-17] MEDS: NON-FORMULARY MED PO SCH (21:32)
[2016-10-18] MEDS: DOCUSATE SODIUM 100 MG CAPSULE (FP) PO SCH ×3 (06:37→21:21)
[2016-10-18] MEDS ORDERED: PARoxetine HCL 10 MG TABLET (FP) ONE (08:58)
[2016-10-18] MEDS ORDERED: PARoxetine HCL 20 MG TABLET (FP) ONE (08:58)
[2016-10-18] MEDS: PRENATAL VITAMINS W/ FOLIC ACID TABLET (FP) PO SCH (10:10)
[2016-10-18] MEDS: ASPIRIN 81 MG CHEWABLE TABLETS PO SCH (10:11)
[2016-10-18] MEDS: PAROXETINE HCL PO SCH (10:11)
[2016-10-18] MEDS: RALTEGRAVIR POTASSIUM 400 MG TAB PO SCH ×2 (10:11→21:21)
[2016-10-18] MEDS: RITONAVIR 100 MG TABLET PO SCH (10:12)
[2016-10-18] MEDS: EMTRICITABINE 200MG/TENOFOVIR 300MG PO SCH (10:13)
[2016-10-18] MEDS: LISINOPRIL 10 MG TABLET (FP) PO SCH (10:14)
[2016-10-18] MEDS: NICOTINE 21 MG/24 HOURS TOPICAL PATCH TD SCH (10:15)
[2016-10-18] MEDS: NON-FORMULARY MED PO SCH (21:20)
[2016-10-18] MEDS: THIAMINE HCL 100 MG TABLET (FP) PO SCH (21:21)
[2016-10-18] MEDS: QUEtiapine FUMARATE 50 MG TABLET PO SCH (21:21)
[2016-10-19] MEDS: DOCUSATE SODIUM 100 MG CAPSULE (FP) PO SCH ×3 (06:39→21:12)
[2016-10-19] MEDS ORDERED: PARoxetine HCL 20 MG TABLET (FP) ONE (09:07)
[2016-10-19] MEDS ORDERED: PARoxetine HCL 10 MG TABLET (FP) ONE (09:08)
[2016-10-19] MEDS: ASPIRIN 81 MG CHEWABLE TABLETS PO SCH (10:23)
[2016-10-19] MEDS: PAROXETINE HCL PO SCH (10:23)
[2016-10-19] MEDS: RALTEGRAVIR POTASSIUM 400 MG TAB PO SCH ×2 (10:23→21:12)
[2016-10-19] MEDS: NICOTINE 21 MG/24 HOURS TOPICAL PATCH TD SCH (10:24)
[2016-10-19] MEDS: PRENATAL VITAMINS W/ FOLIC ACID TABLET (FP) PO SCH (10:25)
[2016-10-19] MEDS: RITONAVIR 100 MG TABLET PO SCH (10:25)
[2016-10-19] MEDS: EMTRICITABINE 200MG/TENOFOVIR 300MG PO SCH (10:26)
[2016-10-19] MEDS: LISINOPRIL 10 MG TABLET (FP) PO SCH (10:26)
[2016-10-19] MEDS: THIAMINE HCL 100 MG TABLET (FP) PO SCH (21:11)
[2016-10-19] MEDS: NON-FORMULARY MED PO SCH (21:12)
[2016-10-19] MEDS: QUEtiapine FUMARATE 50 MG TABLET PO SCH (21:12)
[2016-10-19] MEDS: guaiFENesin/D-METHORPHAN HB 10 ML UNIT-DOSE CUPS PO PRN (21:13)
[2016-10-20] MEDS: DOCUSATE SODIUM 100 MG CAPSULE (FP) PO SCH ×3 (06:29→21:08)
[2016-10-20] MEDS ORDERED: PARoxetine HCL 20 MG TABLET (FP) ONE (09:02)
[2016-10-20] MEDS ORDERED: PARoxetine HCL 10 MG TABLET (FP) ONE (09:02)
[2016-10-20] MEDS: RALTEGRAVIR POTASSIUM 400 MG TAB PO SCH ×2 (10:14→21:08)
[2016-10-20] MEDS: RITONAVIR 100 MG TABLET PO SCH (10:14)
[2016-10-20] MEDS: PAROXETINE HCL PO SCH (10:14)
[2016-10-20] MEDS: ASPIRIN 81 MG CHEWABLE TABLETS PO SCH (10:14)
[2016-10-20] MEDS: PRENATAL VITAMINS W/ FOLIC ACID TABLET (FP) PO SCH (10:14)
[2016-10-20] MEDS: EMTRICITABINE 200MG/TENOFOVIR 300MG PO SCH (10:15)
[2016-10-20] MEDS: LISINOPRIL 10 MG TABLET (FP) PO SCH (10:15)
[2016-10-20] MEDS: NICOTINE 21 MG/24 HOURS TOPICAL PATCH TD SCH (10:16)
[2016-10-20] MEDS: THIAMINE HCL 100 MG TABLET (FP) PO SCH (21:08)
[2016-10-20] MEDS: QUEtiapine FUMARATE 50 MG TABLET PO SCH (21:09)
[2016-10-20] MEDS: NON-FORMULARY MED PO SCH (21:09)
[2016-10-21] MEDS: DOCUSATE SODIUM 100 MG CAPSULE (FP) PO SCH ×3 (06:36→21:05)
[2016-10-21] MEDS ORDERED: PARoxetine HCL 10 MG TABLET (FP) ONE (09:10)
[2016-10-21] MEDS ORDERED: PARoxetine HCL 20 MG TABLET (FP) ONE (09:10)
[2016-10-21] MEDS: PRENATAL VITAMINS W/ FOLIC ACID TABLET (FP) PO SCH (10:07)
[2016-10-21] MEDS: RALTEGRAVIR POTASSIUM 400 MG TAB PO SCH ×2 (10:07→21:05)
[2016-10-21] MEDS: ASPIRIN 81 MG CHEWABLE TABLETS PO SCH (10:07)
[2016-10-21] MEDS: RITONAVIR 100 MG TABLET PO SCH (10:08)
[2016-10-21] MEDS: PAROXETINE HCL PO SCH (10:08)
[2016-10-21] MEDS: LISINOPRIL 10 MG TABLET (FP) PO SCH (10:08)
[2016-10-21] MEDS: EMTRICITABINE 200MG/TENOFOVIR 300MG PO SCH (10:09)
[2016-10-21] MEDS: NICOTINE 21 MG/24 HOURS TOPICAL PATCH TD SCH (10:09)
[2016-10-21] MEDS: QUEtiapine FUMARATE 50 MG TABLET PO SCH (21:05)
[2016-10-21] MEDS: NON-FORMULARY MED PO SCH (21:05)
[2016-10-21] MEDS: THIAMINE HCL 100 MG TABLET (FP) PO SCH (21:05)
[2016-10-21] MEDS: guaiFENesin/D-METHORPHAN HB 10 ML UNIT-DOSE CUPS PO PRN (21:06)
[2016-10-22] MEDS: DOCUSATE SODIUM 100 MG CAPSULE (FP) PO SCH ×3 (07:02→21:05)
[2016-10-22] MEDS: RALTEGRAVIR POTASSIUM 400 MG TAB PO SCH ×2 (10:27→21:05)
[2016-10-22] MEDS: ASPIRIN 81 MG CHEWABLE TABLETS PO SCH (10:27)
[2016-10-22] MEDS: EMTRICITABINE 200MG/TENOFOVIR 300MG PO SCH (10:27)
[2016-10-22] MEDS: PRENATAL VITAMINS W/ FOLIC ACID TABLET (FP) PO SCH (10:27)
[2016-10-22] MEDS: RITONAVIR 100 MG TABLET PO SCH (10:27)
[2016-10-22] MEDS: NICOTINE 21 MG/24 HOURS TOPICAL PATCH TD SCH (10:29)
[2016-10-22] MEDS: LISINOPRIL 10 MG TABLET (FP) PO SCH (10:29)
[2016-10-22] MEDS: PAROXETINE HCL PO SCH (10:29)
[2016-10-22] MEDS: MAG HYDROX/AL HYDROX/SIMETH 30 ML UNIT-DOSE CUP PO PRN (10:30)
[2016-10-22] MEDS: NON-FORMULARY MED PO SCH (21:05)
[2016-10-22] MEDS: THIAMINE HCL 100 MG TABLET (FP) PO SCH (21:05)
[2016-10-22] MEDS: QUEtiapine FUMARATE 50 MG TABLET PO SCH (21:06)
[2016-10-23] MEDS: DOCUSATE SODIUM 100 MG CAPSULE (FP) PO SCH ×3 (06:11→21:09)
[2016-10-23] MEDS ORDERED: PARoxetine HCL 20 MG TABLET (FP) ONE (08:29)
[2016-10-23] MEDS ORDERED: PARoxetine HCL 10 MG TABLET (FP) ONE (08:29)
[2016-10-23] MEDS: ASPIRIN 81 MG CHEWABLE TABLETS PO SCH (10:35)
[2016-10-23] MEDS: PRENATAL VITAMINS W/ FOLIC ACID TABLET (FP) PO SCH (10:35)
[2016-10-23] MEDS: LISINOPRIL 10 MG TABLET (FP) PO SCH (10:35)
[2016-10-23] MEDS: EMTRICITABINE 200MG/TENOFOVIR 300MG PO SCH (10:35)
[2016-10-23] MEDS: RALTEGRAVIR POTASSIUM 400 MG TAB PO SCH ×2 (10:35→21:09)
[2016-10-23] MEDS: RITONAVIR 100 MG TABLET PO SCH (10:35)
[2016-10-23] MEDS: PAROXETINE HCL PO SCH (10:36)
[2016-10-23] MEDS: NICOTINE 21 MG/24 HOURS TOPICAL PATCH TD SCH (10:36)
[2016-10-23] MEDS: NON-FORMULARY MED PO SCH (21:09)
[2016-10-23] MEDS: THIAMINE HCL 100 MG TABLET (FP) PO SCH (21:09)
[2016-10-23] MEDS: QUEtiapine FUMARATE 50 MG TABLET PO SCH (21:09)
[2016-10-24] MEDS: DOCUSATE SODIUM 100 MG CAPSULE (FP) PO SCH ×3 (06:25→21:02)
[2016-10-24] MEDS ORDERED: PARoxetine HCL 20 MG TABLET (FP) ONE (08:59)
[2016-10-24] MEDS ORDERED: PARoxetine HCL 10 MG TABLET (FP) ONE (08:59)
[2016-10-24] MEDS: PAROXETINE HCL PO SCH (09:53)
[2016-10-24] MEDS: RALTEGRAVIR POTASSIUM 400 MG TAB PO SCH ×2 (09:53→21:02)
[2016-10-24] MEDS: PRENATAL VITAMINS W/ FOLIC ACID TABLET (FP) PO SCH (09:54)
[2016-10-24] MEDS: RITONAVIR 100 MG TABLET PO SCH (09:54)
[2016-10-24] MEDS: EMTRICITABINE 200MG/TENOFOVIR 300MG PO SCH (09:54)
[2016-10-24] MEDS: LISINOPRIL 10 MG TABLET (FP) PO SCH (09:54)
[2016-10-24] MEDS: MAG HYDROX/AL HYDROX/SIMETH 30 ML UNIT-DOSE CUP PO PRN (09:57)
[2016-10-24] MEDS: ASPIRIN 81 MG CHEWABLE TABLETS PO SCH (09:57)
[2016-10-24] MEDS: NICOTINE 21 MG/24 HOURS TOPICAL PATCH TD SCH (10:49)
[2016-10-24] MEDS: QUEtiapine FUMARATE 50 MG TABLET PO SCH (21:02)
[2016-10-24] MEDS: NON-FORMULARY MED PO SCH (21:02)
[2016-10-24] MEDS: THIAMINE HCL 100 MG TABLET (FP) PO SCH (21:02)
[2016-10-25] MEDS: DOCUSATE SODIUM 100 MG CAPSULE (FP) PO SCH ×3 (07:42→21:01)
[2016-10-25] MEDS ORDERED: PARoxetine HCL 20 MG TABLET (FP) ONE (08:53)
[2016-10-25] MEDS ORDERED: PARoxetine HCL 10 MG TABLET (FP) ONE (08:53)
[2016-10-25] MEDS: ASPIRIN 81 MG CHEWABLE TABLETS PO SCH (10:04)
[2016-10-25] MEDS: EMTRICITABINE 200MG/TENOFOVIR 300MG PO SCH (10:04)
[2016-10-25] MEDS: PRENATAL VITAMINS W/ FOLIC ACID TABLET (FP) PO SCH (10:04)
[2016-10-25] MEDS: RITONAVIR 100 MG TABLET PO SCH (10:04)
[2016-10-25] MEDS: PAROXETINE HCL PO SCH (10:05)
[2016-10-25] MEDS: RALTEGRAVIR POTASSIUM 400 MG TAB PO SCH ×2 (10:05→21:01)
[2016-10-25] MEDS: LISINOPRIL 10 MG TABLET (FP) PO SCH (10:05)
[2016-10-25] MEDS: NICOTINE 21 MG/24 HOURS TOPICAL PATCH TD SCH (10:06)
[2016-10-25] MEDS: MAG HYDROX/AL HYDROX/SIMETH 30 ML UNIT-DOSE CUP PO PRN (14:21)
[2016-10-25] MEDS: QUEtiapine FUMARATE 50 MG TABLET PO SCH (21:01)
[2016-10-25] MEDS: THIAMINE HCL 100 MG TABLET (FP) PO SCH (21:01)
[2016-10-25] MEDS: NON-FORMULARY MED PO SCH (21:02)
[2016-10-26] MEDS: DOCUSATE SODIUM 100 MG CAPSULE (FP) PO SCH ×3 (06:16→21:12)
[2016-10-26] MEDS ORDERED: PARoxetine HCL 10 MG TABLET (FP) ONE (08:40)
[2016-10-26] MEDS ORDERED: PARoxetine HCL 20 MG TABLET (FP) ONE (08:40)
[2016-10-26] MEDS: ASPIRIN 81 MG CHEWABLE TABLETS PO SCH (10:04)
[2016-10-26] MEDS: PRENATAL VITAMINS W/ FOLIC ACID TABLET (FP) PO SCH (10:04)
[2016-10-26] MEDS: RALTEGRAVIR POTASSIUM 400 MG TAB PO SCH ×2 (10:04→21:12)
[2016-10-26] MEDS: PAROXETINE HCL PO SCH (10:04)
[2016-10-26] MEDS: EMTRICITABINE 200MG/TENOFOVIR 300MG PO SCH (10:05)
[2016-10-26] MEDS: RITONAVIR 100 MG TABLET PO SCH (10:05)
[2016-10-26] MEDS: NICOTINE 21 MG/24 HOURS TOPICAL PATCH TD SCH (10:05)
[2016-10-26] MEDS: LISINOPRIL 10 MG TABLET (FP) PO SCH (10:05)
[2016-10-26] MEDS: THIAMINE HCL 100 MG TABLET (FP) PO SCH (21:12)
[2016-10-26] MEDS: QUEtiapine FUMARATE 50 MG TABLET PO SCH (21:12)
[2016-10-26] MEDS: NON-FORMULARY MED PO SCH (21:13)
[2016-10-27] MEDS: DOCUSATE SODIUM 100 MG CAPSULE (FP) PO SCH ×3 (06:22→21:10)
[2016-10-27] MEDS ORDERED: PARoxetine HCL 20 MG TABLET (FP) ONE (08:38)
[2016-10-27] MEDS ORDERED: PARoxetine HCL 10 MG TABLET (FP) ONE (08:38)
[2016-10-27] MEDS: ASPIRIN 81 MG CHEWABLE TABLETS PO SCH (10:27)
[2016-10-27] MEDS: PAROXETINE HCL PO SCH (10:27)
[2016-10-27] MEDS: NICOTINE 21 MG/24 HOURS TOPICAL PATCH TD SCH (10:28)
[2016-10-27] MEDS: RITONAVIR 100 MG TABLET PO SCH (10:28)
[2016-10-27] MEDS: PRENATAL VITAMINS W/ FOLIC ACID TABLET (FP) PO SCH (10:30)
[2016-10-27] MEDS: EMTRICITABINE 200MG/TENOFOVIR 300MG PO SCH (10:31)
[2016-10-27] MEDS: LISINOPRIL 10 MG TABLET (FP) PO SCH (10:31)
[2016-10-27] MEDS: RALTEGRAVIR POTASSIUM 400 MG TAB PO SCH ×2 (12:36→21:10)
[2016-10-27] MEDS: THIAMINE HCL 100 MG TABLET (FP) PO SCH (21:10)
[2016-10-27] MEDS: QUEtiapine FUMARATE 50 MG TABLET PO SCH (21:10)
[2016-10-27] MEDS: NON-FORMULARY MED PO SCH (21:10)
[2016-10-28] MEDS: DOCUSATE SODIUM 100 MG CAPSULE (FP) PO SCH ×4 (06:24→21:05)
[2016-10-28] MEDS ORDERED: PARoxetine HCL 10 MG TABLET (FP) ONE (08:20)
[2016-10-28] MEDS ORDERED: PARoxetine HCL 20 MG TABLET (FP) ONE (08:20)
[2016-10-28] MEDS: PAROXETINE HCL PO SCH (10:10)
[2016-10-28] MEDS: ASPIRIN 81 MG CHEWABLE TABLETS PO SCH (10:10)
[2016-10-28] MEDS: RALTEGRAVIR POTASSIUM 400 MG TAB PO SCH ×2 (10:10→21:04)
[2016-10-28] MEDS: PRENATAL VITAMINS W/ FOLIC ACID TABLET (FP) PO SCH (10:10)
[2016-10-28] MEDS: NICOTINE 21 MG/24 HOURS TOPICAL PATCH TD SCH (10:11)
[2016-10-28] MEDS: RITONAVIR 100 MG TABLET PO SCH (10:11)
[2016-10-28] MEDS: LISINOPRIL 10 MG TABLET (FP) PO SCH (10:12)
[2016-10-28] MEDS: EMTRICITABINE 200MG/TENOFOVIR 300MG PO SCH (10:12)
[2016-10-28] MEDS: THIAMINE HCL 100 MG TABLET (FP) PO SCH (21:04)
[2016-10-28] MEDS: QUEtiapine FUMARATE 50 MG TABLET PO SCH (21:04)
[2016-10-28] MEDS: NON-FORMULARY MED PO SCH (21:04)
[2016-10-28] MEDS: MAG HYDROX/AL HYDROX/SIMETH 30 ML UNIT-DOSE CUP PO PRN (21:06)
[2016-10-29] MEDS: DOCUSATE SODIUM 100 MG CAPSULE (FP) PO SCH ×3 (06:15→21:07)
[2016-10-29] MEDS ORDERED: PARoxetine HCL 20 MG TABLET (FP) ONE (08:37)
[2016-10-29] MEDS ORDERED: PARoxetine HCL 10 MG TABLET (FP) ONE (08:37)
[2016-10-29] MEDS: PAROXETINE HCL PO SCH (10:25)
[2016-10-29] MEDS: RALTEGRAVIR POTASSIUM 400 MG TAB PO SCH ×2 (10:25→21:07)
[2016-10-29] MEDS: PRENATAL VITAMINS W/ FOLIC ACID TABLET (FP) PO SCH (10:25)
[2016-10-29] MEDS: EMTRICITABINE 200MG/TENOFOVIR 300MG PO SCH (10:25)
[2016-10-29] MEDS: ASPIRIN 81 MG CHEWABLE TABLETS PO SCH (10:25)
[2016-10-29] MEDS: LISINOPRIL 10 MG TABLET (FP) PO SCH (10:26)
[2016-10-29] MEDS: NICOTINE 21 MG/24 HOURS TOPICAL PATCH TD SCH (10:28)
[2016-10-29] MEDS: MAG HYDROX/AL HYDROX/SIMETH 30 ML UNIT-DOSE CUP PO PRN (10:29)
[2016-10-29] MEDS: RITONAVIR 100 MG TABLET PO SCH (10:30)
[2016-10-29] MEDS: THIAMINE HCL 100 MG TABLET (FP) PO SCH (21:07)
[2016-10-29] MEDS: NON-FORMULARY MED PO SCH (21:07)
[2016-10-29] MEDS: QUEtiapine FUMARATE 50 MG TABLET PO SCH (21:07)
[2016-10-30] MEDS: DOCUSATE SODIUM 100 MG CAPSULE (FP) PO SCH (06:30)
[2016-10-30] MEDS ORDERED: PARoxetine HCL 20 MG TABLET (FP) ONE (08:46)
[2016-10-30] MEDS ORDERED: PARoxetine HCL 10 MG TABLET (FP) ONE (08:47)
[2016-10-30] MEDS: PRENATAL VITAMINS W/ FOLIC ACID TABLET (FP) PO SCH (10:26)
[2016-10-30] MEDS: PAROXETINE HCL PO SCH (10:26)
[2016-10-30] MEDS: RALTEGRAVIR POTASSIUM 400 MG TAB PO SCH ×2 (10:26→21:09)
[2016-10-30] MEDS: LISINOPRIL 10 MG TABLET (FP) PO SCH (10:27)
[2016-10-30] MEDS: EMTRICITABINE 200MG/TENOFOVIR 300MG PO SCH (10:27)
[2016-10-30] MEDS: RITONAVIR 100 MG TABLET PO SCH (10:27)
[2016-10-30] MEDS: ASPIRIN 81 MG CHEWABLE TABLETS PO SCH (10:27)
[2016-10-30] MEDS: NICOTINE 21 MG/24 HOURS TOPICAL PATCH TD SCH (10:28)
[2016-10-30] MEDS: THIAMINE HCL 100 MG TABLET (FP) PO SCH (21:09)
[2016-10-30] MEDS: QUEtiapine FUMARATE 50 MG TABLET PO SCH (21:09)
[2016-10-30] MEDS: NON-FORMULARY MED PO SCH (21:09)
[2016-10-31 06:55] VITALS: BP 120/78; PULSE 86; TEMP 97.4
[2016-10-31] MEDS ORDERED: PARoxetine HCL 10 MG TABLET (FP) ONE (08:13)
[2016-10-31] MEDS ORDERED: PARoxetine HCL 20 MG TABLET (FP) ONE (08:13)
[2016-10-31] MEDS: PRENATAL VITAMINS W/ FOLIC ACID TABLET (FP) PO SCH (09:43)
[2016-10-31] MEDS: EMTRICITABINE 200MG/TENOFOVIR 300MG PO SCH (09:43)
[2016-10-31] MEDS: PAROXETINE HCL PO SCH (09:43)
[2016-10-31] MEDS: RITONAVIR 100 MG TABLET PO SCH (09:43)
[2016-10-31] MEDS: RALTEGRAVIR POTASSIUM 400 MG TAB PO SCH (09:43)
[2016-10-31] MEDS: NICOTINE 21 MG/24 HOURS TOPICAL PATCH TD SCH (09:43)
[2016-10-31] MEDS: ASPIRIN 81 MG CHEWABLE TABLETS PO SCH (09:43)
[2016-10-31] MEDS: LISINOPRIL 10 MG TABLET (FP) PO SCH (09:43)
--- NOTE | 2016-10-31 10:57 | PN ---
Psychiatric Progress Note Vital Signs: Vital Signs Period Temp Pulse Resp BP Sys/Sands Pulse Ox Last 24 Hr 97.4 F 86 18-18 120/78 Date of Session: 10/31/16 Chief Complaint:: discharge visit HPI: Patient has addressed alcohol, nicotine dependence comorbid Bipolar I disorder, most recent episode depressed. ROS: HIV infection since 1988, vitiligo,decreased hearing,hepatitis C, hypercholesterolemia,hypertension,lower back pain and a history of anal surgery (excision of warts) Current Medications: Active Medications Generic Name Dose Route Start Last Admin Trade Name Freq PRN Reason Stop Dose Admin Acetaminophen 650 mg 10/08/16 14:54 10/09/16 21:23 Tylenol - PO 650 mg Q4H PRN Administration FEVER OR PAIN Al Hydroxide/Mg Hydroxide 30 ml 10/08/16 14:54 10/29/16 10:29 Mylanta Oral Suspension - PO 30 ml Q6H PRN Administration DYSPEPSIA Aspirin 81 mg 10/09/16 10:00 10/31/16 09:43 Asa - PO 81 mg DAILY LEIF Administration Diphenhydramine HCl 50 mg 10/08/16 14:54 10/08/16 21:32 Benadryl - PO 50 mg HSMR1 PRN Administration FOR ITCHING Emtricitabine/Tenofovir 1 tab 10/09/16 10:00 10/31/16 09:43 Truvada PO 1 tab DAILY LEIF Administration Eucalyptus/Menthol/Phenol/Sorbitol 1 each 10/08/16 14:54 Cepastat Lozenge - MM Q4H PRN SORE THROAT Guaifenesin 10 ml 10/08/16 14:54 10/21/16 21:06 Robitussin Dm - PO 10 ml Q6H PRN Administration COUGH Ibuprofen 600 mg 10/10/16 14:55 10/16/16 10:17 Motrin - PO 600 mg Q6H PRN Administration PAIN Lisinopril 10 mg 10/09/16 10:00 10/31/16 09:43 Prinivil PO 10 mg DAILY LEIF Administration Loperamide HCl 4 mg 10/08/16 14:54 Imodium - PO Q6H PRN DIARRHEA Magnesium Hydroxide 30 ml 10/08/16 14:54 Milk Of Magnesia - PO DAILY PRN CONSTIPATION Nicotine 21 mg 10/09/16 10:00 10/31/16 09:43 Nicoderm Patch - TD Not Given DAILY LEIF Nicotine Polacrilex 4 mg 10/08/16 14:54 Nicorette Gum - BUC Q2H PRN NICOTINE REPLACEMENT RX Non-Formulary Medication 10 each 10/08/16 22:00 10/30/16 21:09 Non-Formulary Med PO 10 each HS LEIF Administration Paroxetine HCl 40 mg/ 50 mg 10/10/16 10:00 10/31/16 09:43 Paroxetine HCl 10 mg PO 50 mg DAILY LEIF Administration Multivit/Folic Acid/Iron 1 tab 10/09/16 10:00 10/31/16 09:43 Vitamins (Sjr) - PO 1 tab DAILY LEIF Administration Pseudoephedrine/Triprolidine 1 combo 10/08/16 14:54 Actifed - PO TID PRN NASAL CONGESTION Quetiapine Fumarate 50 mg 10/09/16 22:00 10/30/16 21:09 Seroquel - PO 50 mg HS LEIF Administration Raltegravir 400 mg 10/08/16 22:15 10/31/16 09:43 Isentress - PO 400 mg BID LEIF Administration Ritonavir 100 mg 10/09/16 10:00 10/31/16 09:43 Norvir - PO 100 mg DAILY LEIF Administration Thiamine HCl 100 mg 10/08/16 22:00 10/30/16 21:09 Vitamin B1 - PO 100 mg HS LEIF Administration Current Side Effect: No Lab tests ordered: No Lab tests reviewed: Yes Provider note:: Patient has completed today his treatment and met his goals and will continue to address his issues at [facility]. Patient gained insoghts into his addiction and motivated to continue maintain abstinence. Patient was encouraged to utilize all supports to prevent relapses. Patient continues finding jaimie Paxil and Seroquel have been effective in mood stabilization and anxiety reduction. Scripts provided, patient is stable for discharge. Total face to face time:: 35 Mental Status Exam - Mental Status Exam Alert and Oriented to: Time, Place, Person Cognitive Function: Good Patient Appearance: Well Groomed Mood: Hopeful Affect: Appropriate, Mood Congruent Patient Behavior: Appropriate, Cooperative Speech Pattern: Clear, Appropriate Voice Loudness: Normal Thought Process: Intact, Goal Oriented Thought Disorder: Not Present Hallucinations: Denies Suicidal Ideation: Denies Homicidal Ideation: Denies Insight/Judgement: Fair Sleep: Fair Appetite: Good Muscle strength/Tone: Normal Gait/Station: Normal Psychiatric Treatment Plan - Problem List (1) Nicotine dependence Current Visit: No Qualifiers: Nicotine product type: cigarettes Substance use status: uncomplicated Qualified Code(s): F17.210 - Nicotine dependence, cigarettes, uncomplicated (2) Bipolar 1 disorder, depressed Current Visit: Yes (3) Alcohol dependence Current Visit: Yes
== END 2016-10-31 10:40 | disposition home or self-care (01) | DRG 772 ==
LOC: YASAS 12:16 → Y5N 12:17
PROVIDERS: ADMIT Psychiatry & Neurology Psychiatry; ATTEND Psychiatry & Neurology Psychiatry
PROC: HZ42ZZZ Group Counseling for Substance Abuse Treatment, Cognitive-Behavioral (ICD-10-PCS; principal; 2016-10-31)
DX: F10.20 Alcohol dependence, uncomplicated (principal); F17.210 Nicotine dependence, cigarettes, uncomplicated; F31.89 Other bipolar disorder
CPT/HCPCS: 71020-TC